=== PATIENT | female | born 1955 | race Hispanic/Latino ===

== ENCOUNTER → 2019-04-04 | Outpatient (CLI) | payer OTHER, MEDICARE ==
[~2019-04-04] MED LIST: CHOL400C9 PO; CYAN-52 PO; ESZO2 PO; EXEN2VIA SQ; FERR325T22 PO; FOLI1TAB15 PO; LISI-613 PO; MAGN250T10 PO; MELO-108 PO; MULT-40 PO; OMEG1CAP31 PO; OMEP20TA25 PO; PREM625 GT; SIMV10TA97 PO; SITA1TAB2 PO; TRAM-355 PO; UBID1CAP2 PO
== END | disposition home or self-care (01) ==
LOC: RAH 09:08
PROVIDERS: ATTEND Internal Medicine Gastroenterology
DX: K76.0 Fatty (change of) liver, not elsewhere classified (principal); R16.0 Hepatomegaly, not elsewhere classified
CPT/HCPCS: 76700

== ENCOUNTER → 2020-11-04 | Outpatient (CLI) | payer OTHER, MEDICARE ==
[~2020-11-04] MED LIST changes: -LISI-613 PO; +LISI20TA24 PO
== END | disposition home or self-care (01) ==
LOC: RAH 09:49
PROVIDERS: ATTEND Internal Medicine Gastroenterology
DX: K75.81 Nonalcoholic steatohepatitis (NASH) (principal); R16.0 Hepatomegaly, not elsewhere classified
CPT/HCPCS: 76700